=== PATIENT | male | born 1985 | race Asian ===

== ENCOUNTER 2021-10-02 09:32 | Outpatient (CLI) | payer BC | END 2021-10-02 09:33 | disposition home or self-care (01) | LOC: CSHULT 09:32 | PROVIDERS: ATTEND Family Medicine | DX: R74.01 Elevation of levels of liver transaminase levels (principal); K76.0 Fatty (change of) liver, not elsewhere classified; R16.0 Hepatomegaly, not elsewhere classified | CPT/HCPCS: 76705 ==

== ENCOUNTER 2025-03-15 10:45 | Outpatient (CLI) | payer BC | END 2025-03-15 10:46 | disposition home or self-care (01) | LOC: CSHULT 10:45 | PROVIDERS: ATTEND Family Medicine | DX: K76.0 Fatty (change of) liver, not elsewhere classified (principal) | CPT/HCPCS: 76700; 93976 ==